=== PATIENT | female | born 1990 | race Caucasian/White ===

== ENCOUNTER 2018-12-16 18:54 | Emergency (ER) | payer MEDICAID ==
[~2018-12-16] VITALS: Ht 160 cm; Wt 56.0 kg
[2018-12-16 22:41] LABS: EOSINOPHILS % 3.9 % (0.0-5.0); HEMATOCRIT. 36.6 % (36.0-48.0); HEMOGLOBIN. 12.6 g/dL (12.0-16.0); LYMPHOCYTES % 34.9 % (20.0-50.0); MEAN CORPUSCULAR HEMOGLOBIN 29.6 pg (28.0-32.0); MEAN CORPUSCULAR VOLUME 86.2 fL (81.0-99.0); MEAN PLATELET VOLUME 7.9 fl (7.4-10.4); MONOCYTES % 5.9 % (2.0-8.0); NEUTROPHILS % 54.3 % (40.0-76.0); PLATELET 311 x1000/uL (130-400); RED BLOOD CELL COUNT 4.24 mill/uL (4.2-5.4)
[2018-12-16 22:45] LABS: CHLORIDE 108 mEq/L (98-107)
[2018-12-17 02:18] VITALS: BP 115/62
== END 2018-12-17 02:18 | disposition home or self-care (01) ==
LOC: ER 18:54
DX: N93.8 Other specified abnormal uterine and vaginal bleeding (principal)
CPT/HCPCS: 36415; 80053; 81025; 85025; 86850; 86900; 86901; 99283; Z7610

== ENCOUNTER 2019-10-31 00:58 | Emergency (ER) | payer MEDICAID ==
[~2019-10-31] VITALS: Ht 160 cm; Wt 60.0 kg
[2019-10-31 01:00] VITALS: BP 152/86
== END 2019-10-31 04:18 | disposition left against medical advice (07) ==
LOC: ER 00:58
DX: Z53.21 Procedure and treatment not carried out due to patient leaving prior to being seen by health care provider (principal); G43.909 Migraine, unspecified, not intractable, without status migrainosus
CPT/HCPCS: 93005

== ENCOUNTER 2024-09-15 11:42 | Emergency (ER) | payer MEDICAID, OTHER ==
[~2024-09-15] VITALS: Ht 162.6 cm; Wt 61.0 kg
[2024-09-15 11:48] VITALS: O2SAT 99
[2024-09-15 12:58] LABS: CLARITY URINE CLEAR (CLEAR); COLOR URINE YELLOW (YELLOW); GLUCOSE URINE NEGATIVE (NEGATIVE); KETONES URINE 1+ (NEGATIVE); LEUKOCYTE ESTERASE URINE 1+ (NEGATIVE); NITRITE URINE NEGATIVE (NEGATIVE); OCCULT BLOOD URINE TRACE (NEGATIVE); PH URINE 6.0 (4.5-8.0); PROTEIN URINE NEGATIVE (NEGATIVE); SPECIFIC GRAVITY URINE 1.023 (1.005-1.030); UROBILINOGEN URINE 0.2 E.U./dL (0.2-1.0)
[2024-09-15 13:08] LABS: BASOPHILS % 0.9 % (0.0-2.0); EOSINOPHILS % 2.0 % (0.0-5.0); HEMATOCRIT. 38.3 % (36.0-48.0); HEMOGLOBIN. 12.7 g/dL (12.0-16.0); LYMPHOCYTES % 18.3 % (20.0-50.0); MEAN PLATELET VOLUME 8.1 fl (7.4-10.4); MONOCYTES % 5.6 % (2.0-8.0); NEUTROPHILS % 73.2 % (40.0-76.0); PLATELET 356 x1000/uL (130-400); RED BLOOD CELL COUNT 4.49 mill/uL (4.2-5.4); RED CELL DISTRIBUTION WIDTH 13.8 % (11.6-14.6)
[2024-09-15 13:12] LABS: INR 1.0
[2024-09-15 13:19] LABS: CREATININE 0.8 mg/dL (0.6-1.0)
[2024-09-15 13:20] LABS: UREA NITROGEN BLOOD 15 mg/dL (9-23)
[2024-09-15 13:21] LABS: ASPARTATE AMINOTRANSFERASE 17 IU/L (<34); TROPONIN I HIGH SENSITIVITY 13 ng/L (3.0-34)
[2024-09-15 13:22] LABS: BILIRUBIN DIRECT < 0.1 mg/dL (<=3.0); BILIRUBIN TOTAL 0.4 mg/dL (0.1-1.0); PHOSPHORUS 2.0 mg/dL (2.5-4.9); PROTEIN TOTAL 7.6 g/dL (6.0-8.3)
[2024-09-15 13:28] LABS: SQUAMOUS EPITHELIAL CELL URINE 2+ /lpf (RARE/1+)
[2024-09-15 13:29] LABS: BACTERIA URINE 3+
[2024-09-15 13:30] LABS: *AMPHETAMINES SCREEN URINE NEGATIVE (NEGATIVE); *BARBITURATES SCREEN URINE NEGATIVE (NEGATIVE); *BENZODIAZEPINES SCREEN URINE NEGATIVE (NEGATIVE); *COCAINE SCREEN URINE NEGATIVE (NEGATIVE); CANNABINOID URINE SCREEN NEGATIVE (NEGATIVE); ECSTASY MDMA SCREEN URINE NEGATIVE (NEGATIVE); METHADONE URINE SCREEN NEGATIVE (NEGATIVE); OPIATES URINE SCREEN NEGATIVE (NEGATIVE); PHENCYCLIDINE URINE SCREEN NEGATIVE (NEGATIVE)
[2024-09-15 13:37] LABS: HCG SCREEN NEGATIVE
[2024-09-15] MEDS ORDERED: IOHEXOL-350 100 ML BOTTLE ONE (15:25)
[2024-09-15] MEDS ORDERED: CEPH250C2 MT (15:28)
[2024-09-15 15:59] VITALS: BP 106/64; PULSE 89; RESP 20; TEMP 36.9; O2SAT 100
== END 2024-09-15 16:00 | disposition home or self-care (01) ==
LOC: ER 11:42
DX: N39.0 Urinary tract infection, site not specified (principal); F41.9 Anxiety disorder, unspecified; G43.909 Migraine, unspecified, not intractable, without status migrainosus; R06.02 Shortness of breath; Z90.49 Acquired absence of other specified parts of digestive tract; Z79.899 Other long term (current) drug therapy; Z98.890 Other specified postprocedural states
CPT/HCPCS: 99285; 71275; 71045; 80076; 80305; 80048; 81003; 81025; 84703; 83880; 83690; 83735; 84100; 85025; 85379; 85610; 84484; 36415; Q9967